=== PATIENT | female | born 1975 | race Caucasian/White ===

== ENCOUNTER 2016-06-22 00:52 | Emergency (ER) | payer MEDICAID ==
[2016-06-22] MEDS ORDERED: Ketorolac 30 MG/ML SDV IVPUSH ONE (01:07)
[2016-06-22] MEDS ORDERED: Ondansetron 4 MG/2 ML SDV IV ONE (01:08)
[2016-06-22] MEDS ORDERED: Sodium Chloride 0.9% 1,000 ML IV ONE (01:10)
--- NOTE | 2016-06-22 01:24 | EDM.PDOC ---
ED HPI RENAL/ - General Chief Complaint: Abdominal Pain Stated Complaint: ABD AND BACK PAIN, [id number] Time Seen by Provider: 06/22/16 01:21 Source of Information: Reports: Patient History Limitations: Reports: No limitations - History of Present Illness INITIAL COMMENTS - FREE TEXT/NARRATIVE: gives recurrent h/o renal stones. onset 2 hours ago. right> - Related Data Allergies/ADRs: Allergies Allergy/AdvReac Type Severity Reaction Status Date / Time Penicillins Allergy Cannot Verified 06/22/16 00:56 Remember Home Meds: Home Meds Omeprazole 20 mg PO DAILY 06/15/13 [History] PARoxetine HCl [Paroxetine HCl] 20 mg PO DAILY 06/15/13 [History] Topiramate [Topamax] 100 mg PO BID 04/19/15 [History] traMADol [Ultram] 100 mg PO DAILY 03/03/16 [History] Past Medical History - Past Health History Medical/Surgical History: Denies Medical/Surgical History HEENT History: Reports: None Cardiovascular History: Reports: None Respiratory History: Reports: None Gastrointestinal History: Reports: GERD, Irritable bowel syndrome Genitourinary History: Reports: Renal calculus Other Genitourinary History: hysterectomy, ovarian cysts, laparoscopic surgeries , breast reduction 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 Other OB/BYN History: endometriosis Musculoskeletal History: Reports: Arthritis, Fracture, Fibromyalgia, Other (see below) Other Musculoskeletal History: arthritis left foot fx., fibromyalgia Neurological History: Reports: Migraines Psychiatric History: Reports: Addiction, Anxiety Endocrine/Metabolic History: Reports: None Hematologic History: Reports: None Immunologic History: Reports: None Oncologic (Cancer) History: Reports: None Dermatologic History: Reports: None - Infectious Disease History Infectious Disease History: Reports: Chicken pox - Past Surgical History Head Surgeries/Procedures: Reports: None GI Surgical History: Reports: Cholecystectomy Female Surgical History: Reports: section, Hysterectomy Social & Family History - Family History Family Medical History: Noncontributory HEENT: Reports: None Cardiac: Reports: None Respiratory: Reports: None GI: Reports: None - Tobacco Use Smoking Status *Q: Current Every Day Smoker Years of Tobacco use: 20 Packs/Tins Daily: 0.5 Used Tobacco, but Quit: No Second Hand Smoke Exposure: Yes - Caffeine Use Caffeine Use: Reports: Coffee - Alcohol Use Days Per Week of Alcohol Use: 0 Number of Drinks Per Day: 1 Total Drinks Per Week: 0 - Recreational Drug Use Recreational Drug Use: No Drug Use in Last 12 Months: No - Living Situation & Occupation Living situation: Reports: with family Occupation: employed ED ROS GENERAL - Review of Systems Review Of Systems: ROS reveals no pertinent complaints other than HPI. ED EXAM, RENAL/ - Physical Exam Exam: See Below Exam Limited By: No limitations General Appearance: alert, WD/WN, mild distress, other (tearful) Ears: hearing grossly normal Throat/Mouth: Normal voice, No airway compromise Head: atraumatic Neck: non-tender, full range of motion Respiratory/Chest: no respiratory distress Cardiovascular: regular rate, rhythm GI/Abdominal: soft. No: guarding, rigid, rebound Back Exam: CVA tenderness (L), CVA tenderness (R) Neurological: alert, oriented, normal cognition, normal gait, no motor/sensory deficits Psychiatric: tearful Skin Exam: Warm, Dry Lymphatic: no adenopathy Course - Vital Signs Last Recorded V/S: Last Vital Signs Temp 36.0 C 06/22/16 00:57 Pulse 88 06/22/16 00:57 Resp 20 06/22/16 00:57 BP 126/81 06/22/16 00:57 Pulse Ox 98 06/22/16 00:57 - Orders/Labs/Meds Orders: Active Orders 24 hr Category Date Time Status Acetaminophen/HYDROcodone [[place] 325-10 MG] Med 06/22/16 02:30 Once 1 tab PO ONETIME ONE Labs: Laboratory Tests 06/22/16 06/22/16 06/22/16 Range/Units 01:00 01:07 01:07 WBC 12.5 H (5.0-10.0) 10^3/uL RBC 4.43 (4.2-5.4) 10^6/uL Hgb 13.5 (12.0-16.0) g/dL Hct 40.2 (37.0-47.0) % MCV 90.7 (80-100) fL MCH 30.5 (27.0-34.0) pg MCHC 33.6 (33.0-35.0) g/dL Plt Count 257 (150-450) 10^3/uL Neut % (Auto) 53.5 (42.2-75.2) % Lymph % (Auto) 39.2 (20.5-50.1) % [place] % (Auto) 5.8 (2-8) % Eos % (Auto) 0.9 L (1.0-3.0) % Baso % (Auto) 0.6 (0.0-1.0) % Sodium 134 L (135-145) mmol/L Potassium 3.6 (3.6-5.0) mmol/L Chloride 104 (101-111) mmol/L Carbon Dioxide 18.0 L (21.0-31.0) mmol/L Anion Gap 15.6 BUN 11 (7-18) mg/dL Creatinine 0.9 (0.6-1.3) mg/dL Est Cr Clr Drug Dosing TNP Estimated GFR (MDRD) > 60 BUN/Creatinine Ratio 12.22 Glucose 104 (74-105) mg/dL Calcium 9.1 (8.4-10.2) mg/dl Total Bilirubin 0.4 (0.2-1.0) mg/dL AST 22 (10-42) IU/L ALT 11 (10-60) IU/L Alkaline Phosphatase 89 (42-121) IU/L Total Protein 7.7 (6.7-8.2) g/dl Albumin 4.4 (3.2-5.5) g/dl Globulin 3.3 Albumin/Globulin Ratio 1.33 Urine Color Yellow (YELLOW) Urine Appearance Slightly cloudy (CLEAR) Urine pH 7.0 (5.0-9.0) Ur Specific [place] 1.020 (1.005-1.030) Urine Protein Negative (NEGATIVE) Urine Glucose (UA) Negative (NEGATIVE) Urine Ketones Negative (NEGATIVE) Urine Occult Blood Trace-intact H (NEGATIVE) Urine Nitrite Negative (NEGATIVE) Urine Bilirubin Negative (NEGATIVE) Urine Urobilinogen 0.2 (0.2-1.0) mg/dL Ur Leukocyte Esterase Negative (NEGATIVE) Urine RBC 0-5 /HPF Urine WBC 0-5 (0-5/HPF) /HPF Ur Epithelial Cells Rare /HPF Amorphous Sediment Moderate H (0/HPF) /HPF Urine Bacteria Rare (0-FEW/HPF) /HPF Meds: Medications Discontinued Medications Generic Name Dose Route Start Last Admin Trade Name Freq PRN Reason Stop Dose Admin Butorphanol Tartrate 1 mg 06/22/16 01:42 06/22/16 01:50 Stadol IVPUSH 06/22/16 01:43 1 mg ONETIME ONE Administration Sodium Chloride 1,000 mls @ 999 mls/hr 06/22/16 01:10 06/22/16 01:14 Normal Saline IV 06/22/16 02:10 999 mls/hr .BOLUS ONE Administration Ketorolac Tromethamine 15 mg 06/22/16 01:07 06/22/16 01:14 Toradol IVPUSH 06/22/16 01:08 15 mg ONETIME ONE Administration Ondansetron HCl 4 mg 06/22/16 01:08 06/22/16 01:15 Zofran IV 06/22/16 01:09 4 mg ONETIME ONE Administration - Re-Assessments/Exams Free Text/Narrative Re-Assessment/Exam: 06/22/16 02:30 results discussed with Pt who is feeling better but not 100%. Departure - Departure Time of Disposition: 02:31 Disposition: Home, Self-Care 01 Condition: good Clinical Impression: Flank pain, Renal cyst Instructions: Abdominal Pain, Adult, [id number] Forms: ED Department Discharge Additional Instructions: 1) rest as much as possible 2) follow up at clinic or recheck as needed - My Orders Last 24 Hours: My Active Orders 06/22/16 02:30 Acetaminophen/HYDROcodone [[place] 325-10 MG] 1 tab PO ONETIME ONE - Assessment/Plan Last 24 Hours: My Active Orders 06/22/16 02:30 Acetaminophen/HYDROcodone [[place] 325-10 MG] 1 tab PO ONETIME ONE
[2016-06-22] MEDS ORDERED: Butorphanol 2 MG/ML SDV IVPUSH ONE (01:42)
[2016-06-22 02:01] LABS: CHLORIDE,CL 104 mmol/L (101-111); SODIUM,NA 134 mmol/L (135-145)
[2016-06-22] MEDS ORDERED: Acetaminophen/HYDROcodone 325-10 MG Tab PO ONE (02:30)
[2016-06-22 02:49] VITALS: BP 123/78
== END 2016-06-22 02:38 | disposition home or self-care (01) ==
LOC: DL.ED 00:52
DX: N28.1 Cyst of kidney, acquired (principal); K21.9 Gastro-esophageal reflux disease without esophagitis; M19.90 Unspecified osteoarthritis, unspecified site; F41.9 Anxiety disorder, unspecified; F17.210 Nicotine dependence, cigarettes, uncomplicated; Z90.710 Acquired absence of both cervix and uterus; Z90.49 Acquired absence of other specified parts of digestive tract; Z79.899 Other long term (current) drug therapy; Z88.0 Allergy status to penicillin
CPT/HCPCS: 36415; 80053; 81001; 85025; 96365; 96375; 99284; A9270; J0595; J1885; J2405; J7030

== ENCOUNTER 2016-07-03 01:46 | Emergency (ER) | payer MEDICAID ==
[2016-07-03] MEDS ORDERED: Ketorolac 30 MG/ML SDV IM ONE (02:02)
[2016-07-03] MEDS ORDERED: Gabapentin 300 MG Cap PO ONE (02:02)
[2016-07-03 02:06] VITALS: BP 105/76
--- NOTE | 2016-07-03 02:06 | EDM.PDOC ---
ED HPI Trauma - General Chief Complaint: Upper Extremity Injury/Pain Stated Complaint: PAIN Time Seen by Provider: 07/03/16 02:06 Source: Reports: Patient History Limitations: Reports: No limitations - History of Present Illness INITIAL COMMENTS - FREE TEXT/NARRATIVE: 40 yo white female c/o one day of neck pain and two days of left shoulder/arm pain w/ limited ROM. Pt. denies any trauma and no incident to cause such left upper extremity discomfort Symptom Onset Date: 06/30/16 Symptom Onset Time: 12:00 Occurred When: yesterday Occurred Where: home Method of Injury: unknown Severity: moderate Pain/Injury Location: Reports: neck, upper extremity, left Consciousness: Reports: no loss of consciousness Associated Symptoms: Reports: neck pain Allergies/ADRs: Allergies Penicillins Allergy (Verified 07/03/16 01:57) Cannot Remember Home Medications: Ambulatory Orders Omeprazole 20 mg PO DAILY 06/15/13 [Confirmed 07/03/16] PARoxetine HCl [Paroxetine HCl] 20 mg PO DAILY 06/15/13 [Confirmed 07/03/16] Topiramate [Topamax] 100 mg PO BID 04/19/15 [Confirmed 07/03/16] traMADol [Ultram] 100 mg PO DAILY 03/03/16 [Confirmed 07/03/16] Methocarbamol [Methocarbamol] 1 tab PO ASDIRECTED PRN 07/03/16 [Confirmed ] Past Medical History - Past Health History Medical/Surgical History: Denies Medical/Surgical History HEENT History: Reports: None Cardiovascular History: Reports: None Respiratory History: Reports: None Gastrointestinal History: Reports: GERD, Irritable bowel syndrome Genitourinary History: Reports: Renal calculus Other Genitourinary History: hysterectomy, ovarian cysts, laparoscopic surgeries , breast reduction 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: 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 Other OB/BYN History: endometriosis Musculoskeletal History: Reports: Arthritis, Fracture, Fibromyalgia, Other (see below) Other Musculoskeletal History: arthritis left foot fx., fibromyalgia Neurological History: Reports: Migraines Psychiatric History: Reports: Addiction, Anxiety Endocrine/Metabolic History: Reports: None Hematologic History: Reports: None Immunologic History: Reports: None Oncologic (Cancer) History: Reports: None Dermatologic History: Reports: None - Infectious Disease History Infectious Disease History: Reports: Chicken pox - Past Surgical History Head Surgeries/Procedures: Reports: None GI Surgical History: Reports: Cholecystectomy Female Surgical History: Reports: section, Hysterectomy Social & Family History - Family History Family Medical History: Noncontributory HEENT: Reports: None Cardiac: Reports: None Respiratory: Reports: None GI: Reports: None - Tobacco Use Smoking Status *Q: Current Every Day Smoker Years of Tobacco use: 20 Packs/Tins Daily: 0.5 Used Tobacco, but Quit: No Second Hand Smoke Exposure: Yes - Caffeine Use Caffeine Use: Reports: Coffee - Alcohol Use Days Per Week of Alcohol Use: 0 Number of Drinks Per Day: 1 Total Drinks Per Week: 0 - Recreational Drug Use Recreational Drug Use: No Drug Use in Last 12 Months: No - Living Situation & Occupation Living situation: Reports: with family Occupation: employed Review of Systems - Review of Systems Review Of Systems: See Below Constitutional: Reports: no symptoms Eyes: Reports: no symptoms Ears: Reports: no symptoms Nose: Reports: no symptoms Mouth/Throat: Reports: no symptoms Respiratory: Reports: No Symptoms Cardiovascular: Reports: no symptoms GI/Abdominal: Reports: No symptoms Genitourinary: Reports: no symptoms Musculoskeletal: Reports: neck pain, shoulder pain (left), arm pain (left) Skin: Reports: no symptoms Neurological: Reports: Paresthesia (left upper extremity) Psychiatric: Reports: no symptoms Trauma Exam - Physical Exam Exam: See Below Exam Limited By: No limitations General Appearance: Reports: alert, WD/WN, no apparent distress Head: Reports: atraumatic, normocephalic Eyes: bilateral eye: PERRL Ears: Reports: normal external exam Nose: Reports: normal inspection Throat/Mouth: Reports: Normal inspection Neck: Reports: full range of motion, tenderness Respiratory Exam: Reports: no respiratory distress, lungs clear, normal breath sounds Cardiovascular: Reports: normal peripheral pulses GI/Abdominal: Reports: normal bowel sounds Back: Reports: full range of motion Extremities: Reports: no evidence of injury, pain with movement (left shoulder/ arm) Neurologic: Reports: alert, oriented x 3 Skin: Reports: Normal color Course - Vital Signs Last Recorded V/S: Last Vital Signs Temp 36.9 C 07/03/16 02:01 Pulse 94 07/03/16 02:01 Resp 18 07/03/16 02:01 BP 105/76 07/03/16 02:01 Pulse Ox 99 07/03/16 02:01 - Orders/Labs/Meds Orders: Active Orders 24 hr Category Date Time Status Cervical Spine 2V or 3V [CR] Urgent Exams 07/03/16 02:01 Taken Meds: Medications Discontinued Medications Generic Name Dose Route Start Last Admin Trade Name Igor PRN Reason Stop Dose Admin Gabapentin 300 mg 07/03/16 02:02 07/03/16 02:16 Neurontin PO 07/03/16 02:03 300 mg ONETIME ONE Administration Ketorolac Tromethamine 60 mg 07/03/16 02:02 07/03/16 02:16 Toradol IM 07/03/16 02:03 60 mg ONETIME ONE Administration Departure - Departure Time of Disposition: 02:45 Disposition: Home, Self-Care 01 Condition: good Clinical Impression: Arthritis Musculoskeletal arm pain Qualifiers: Laterality: left Qualified Code(s): M79.602 - Pain in left arm Forms: ED Department Discharge Additional Instructions: Rest No Lifting, No Pulling and No Pushing Take Meds as Prescribed: Ibuprofen 600mg TID # 30 W/ food Neurontin 300mg TID # 15 F/U w/ PCP for further evaluation and treatment - My Orders Last 24 Hours: My Active Orders 07/03/16 02:01 Cervical Spine 2V or 3V [CR] Urgent - Assessment/Plan Last 24 Hours: My Active Orders 07/03/16 02:01 Cervical Spine 2V or 3V [CR] Urgent
== END 2016-07-03 02:56 | disposition home or self-care (01) ==
LOC: DL.ED 01:46
DX: M79.602 Pain in left arm (principal); M19.90 Unspecified osteoarthritis, unspecified site; K21.9 Gastro-esophageal reflux disease without esophagitis; F17.210 Nicotine dependence, cigarettes, uncomplicated; G43.909 Migraine, unspecified, not intractable, without status migrainosus; F41.9 Anxiety disorder, unspecified; Z90.710 Acquired absence of both cervix and uterus; Z90.49 Acquired absence of other specified parts of digestive tract; Z88.0 Allergy status to penicillin; Z79.899 Other long term (current) drug therapy
CPT/HCPCS: 72040; 96372; 99283; A9270; J1885

== ENCOUNTER 2016-07-14 10:09 | Emergency (ER) | payer MEDICAID ==
[2016-07-14 10:22] VITALS: BP 114/86
--- NOTE | 2016-07-14 11:10 | EDM.PDOC ---
ED HPI Trauma - General Chief Complaint: Upper Extremity Injury/Pain Stated Complaint: FELL ON OUTSIDE STEPS. HURT BACK AND LT SHOULDER Time Seen by Provider: 07/14/16 10:30 Source: Reports: Patient History Limitations: Reports: No limitations - History of Present Illness INITIAL COMMENTS - FREE TEXT/NARRATIVE: This 41 yo female patient reports to the ED with pain from the left shoulder to the left pelvis. The patient reports she has been having pain for the past week , has been seen in the ED, and by her primary care facility. The patient reports she did have a MRI, but has not gotten the results from that study yet. This morning, the patient was going outside to smoke and slipped on the steps. The patient fell on her left hip, cocyx, left lower back and left posterior shoulder. Symptom Onset Date: 07/14/16 Occurred When: just prior to arrival Occurred Where: home Method of Injury: fall Severity: moderate Pain/Injury Location: Reports: neck, pelvis, back Consciousness: Reports: no loss of consciousness Associated Symptoms: Reports: no other symptoms Allergies/ADRs: Allergies Penicillins Allergy (Verified 07/14/16 10:17) Cannot Remember Home Medications: Ambulatory Orders Omeprazole 20 mg PO DAILY 06/15/13 [Confirmed 07/03/16] PARoxetine HCl [Paroxetine HCl] 20 mg PO DAILY 06/15/13 [Confirmed 07/03/16] Topiramate [Topamax] 100 mg PO BID 04/19/15 [Confirmed 07/03/16] traMADol [Ultram] 100 mg PO DAILY 03/03/16 [Confirmed 07/03/16] Methocarbamol [Methocarbamol] 1 tab PO ASDIRECTED PRN 07/03/16 [Confirmed ] Past Medical History - Past Health History Medical/Surgical History: Denies Medical/Surgical History HEENT History: Reports: None Cardiovascular History: Reports: None Respiratory History: Reports: None Gastrointestinal History: Reports: GERD, Irritable bowel syndrome Genitourinary History: Reports: Renal calculus Other Genitourinary History: hysterectomy, ovarian cysts, laparoscopic surgeries , breast reduction 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 Other OB/BYN History: endometriosis Musculoskeletal History: Reports: Arthritis, Fracture, Fibromyalgia, Other (see below) Other Musculoskeletal History: arthritis left foot fx., fibromyalgia Neurological History: Reports: Migraines Psychiatric History: Reports: Addiction, Anxiety Endocrine/Metabolic History: Reports: None Hematologic History: Reports: None Immunologic History: Reports: None Oncologic (Cancer) History: Reports: None Dermatologic History: Reports: None - Infectious Disease History Infectious Disease History: Reports: Chicken pox - Past Surgical History Head Surgeries/Procedures: Reports: None GI Surgical History: Reports: Cholecystectomy Female Surgical History: Reports: section, Hysterectomy Social & Family History - Family History Family Medical History: Noncontributory HEENT: Reports: None Cardiac: Reports: None Respiratory: Reports: None GI: Reports: None - Tobacco Use Smoking Status *Q: Current Every Day Smoker Years of Tobacco use: 25 Packs/Tins Daily: 0.5 Used Tobacco, but Quit: No Second Hand Smoke Exposure: Yes - Caffeine Use Caffeine Use: Reports: Coffee - Alcohol Use Days Per Week of Alcohol Use: 0 Number of Drinks Per Day: 1 Total Drinks Per Week: 0 - Recreational Drug Use Recreational Drug Use: No Drug Use in Last 12 Months: No - Living Situation & Occupation Living situation: Reports: with family Occupation: employed Review of Systems - Review of Systems Review Of Systems: ROS reveals no pertinent complaints other than HPI. Trauma Exam - Physical Exam Exam: See Below Exam Limited By: No limitations General Appearance: Reports: alert, WD/WN, moderate distress Head: Reports: atraumatic, normocephalic Eyes: bilateral eye: EOMI, normal inspection, PERRL Ears: Reports: normal external exam, normal canal, hearing grossly normal, normal TMs Nose: Reports: normal inspection, normal mucousa, no blood Throat/Mouth: Reports: Normal inspection, Normal lips, Normal teeth, Normal gums , Normal oropharynx, Normal voice, No airway compromise Neck: Reports: limited range of motion, painful range of motion, tenderness, tender lateral Respiratory Exam: Reports: no respiratory distress, lungs clear, normal breath sounds Cardiovascular: Reports: normal peripheral pulses, regular rate, rhythm, no edema, no gallop, no JVD, no murmur, no rub GI/Abdominal: Reports: normal bowel sounds, soft, non tender, no organomegaly, no distention, no abnormal bruit, no mass (Female) Exam: Deferred Rectal (Female) Exam: Deferred Back: Reports: decreased range of motion, paraspinal tenderness (left lower back ) Extremities: Reports: tenderness (left lower back and pelvis) 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, no motor/sensory deficits, alert , normal mood/affect, oriented x 3 Skin: Reports: Normal color, Warm/dry - Adiel Coma Score Best Eye Response ([place]): (4) open spontaneously Best Verbal Response ([place]): (5) oriented Best Motor Response ([place]): (6) obeys commands [place] Total: 15 Course - Vital Signs Last Recorded V/S: Last Vital Signs Temp 36.8 C 07/14/16 10:19 Pulse 86 07/14/16 10:19 Resp 16 07/14/16 10:19 BP 114/86 07/14/16 10:19 Pulse Ox 99 07/14/16 10:19 - Orders/Labs/Meds Meds: Medications Discontinued Medications Generic Name Dose Route Start Last Admin Trade Name Igor PRN Reason Stop Dose Admin Ketorolac Tromethamine 60 mg 07/14/16 11:45 Toradol IM 07/14/16 11:46 ONETIME ONE Departure - Departure Time of Disposition: 11:47 Disposition: Home, Self-Care 01 Condition: fair Clinical Impression: Fall from ground level Low back pain Qualifiers: Chronicity: acute Back pain laterality: left Sciatica presence: with sciatica Sciatica laterality: sciatica of left side Qualified Code(s): M54.42 - Lumbago with sciatica, left side Instructions: Back Pain, Adult, [id number] Forms: ED Department Discharge Care Plan Goals: The patient was advised of the examination and x-ray results during the visit. The patient was given an injection of Toradol (60 mg) while in the ED. The patient was discharged with a script for Toradol (10 mg) #20 to take 1 by mouth every 6 hours and Flexeril (10 mg) #16 to take 1 by mouth every 6 hours as needed. If the patient has any additional symptoms or concerns, the patient should follow-up with her primary care facility or return to the emergency department.
--- NOTE | 2016-07-14 11:29 | CR ---
CLINICAL HISTORY: 41-year-old female injured in a fall (pain low back and hips). INTERPRETATION: AP pelvis reveals solitary surgical clip right of midline and osteitis pubic symphys is. Symmetric spacing normal-appearing SI and hip joints. No sign of pathologic skeletal lesion, pelvic or either hip fracture/dislocation.
--- NOTE | 2016-07-14 11:29 | CR ---
CLINICAL HISTORY: 41-year-old female with low back pain associated with fall. INTERPRETATION: Subtle marginal arthritic spur formation mid and upper lumbar spine. Homogeneous normal bone density and no sign of pathologic skeletal lesion, lumbar fracture, spondylo listhesis or abnormal intervertebral space narrowing. (Surgical clips gallbladder fossa right upper quadrant). Symmetric spacing normal-appearing SI joints. CONCLUSION: Early arthritis. Otherwise negative plain film exam lumbar spine (no fracture or disloca tion).
[2016-07-14] MEDS ORDERED: Ketorolac 30 MG/ML SDV IM ONE (11:45)
== END 2016-07-14 12:09 | disposition home or self-care (01) ==
LOC: DL.ED 10:09
DX: M54.42 Lumbago with sciatica, left side (principal); W19.XXXA Unspecified fall, initial encounter; Z88.0 Allergy status to penicillin; Z79.899 Other long term (current) drug therapy; K21.9 Gastro-esophageal reflux disease without esophagitis; M79.7 Fibromyalgia; M19.90 Unspecified osteoarthritis, unspecified site; F41.9 Anxiety disorder, unspecified; F17.200 Nicotine dependence, unspecified, uncomplicated
CPT/HCPCS: 72100; 72170; 96372; 99284; J1885

== ENCOUNTER 2016-08-01 03:51 | Emergency (ER) | payer MEDICAID ==
[2016-08-01] MEDS ORDERED: Promethazine 25 MG/ML SDV IM ONE (04:02)
[2016-08-01] MEDS ORDERED: Butorphanol 2 MG/ML SDV IM ONE (04:02)
--- NOTE | 2016-08-01 04:06 | EDM.PDOC ---
ED HPI Trauma - General Chief Complaint: Lower Extremity Injury/Pain Stated Complaint: FELL IN SHOWER Time Seen by Provider: 08/01/16 04:03 Source: Reports: Patient History Limitations: Reports: No limitations - History of Present Illness INITIAL COMMENTS - FREE TEXT/NARRATIVE: fell in shower hurt knee and back but left knee now has a lump, tried PO toradol but '0'. Allergies/ADRs: Allergies Penicillins Allergy (Verified 08/01/16 04:05) Cannot Remember Home Medications: Ambulatory Orders Omeprazole 20 mg PO DAILY 06/15/13 [Confirmed 08/01/16] PARoxetine HCl [Paroxetine HCl] 20 mg PO DAILY 06/15/13 [Confirmed 08/01/16] Topiramate [Topamax] 100 mg PO BID 04/19/15 [Confirmed 08/01/16] traMADol [Ultram] 100 mg PO DAILY 03/03/16 [Confirmed 08/01/16] Past Medical History - Past Health History Medical/Surgical History: Denies Medical/Surgical History HEENT History: Reports: None Cardiovascular History: Reports: None Respiratory History: Reports: None Gastrointestinal History: Reports: GERD, Irritable bowel syndrome Genitourinary History: Reports: Renal calculus Other Genitourinary History: hysterectomy, ovarian cysts, laparoscopic surgeries , breast reduction 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: 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 Other OB/BYN History: endometriosis Musculoskeletal History: Reports: Arthritis, Fracture, Fibromyalgia, Other (see below) Other Musculoskeletal History: arthritis left foot fx., fibromyalgia Neurological History: Reports: Migraines Psychiatric History: Reports: Addiction, Anxiety Endocrine/Metabolic History: Reports: None Hematologic History: Reports: None Immunologic History: Reports: None Oncologic (Cancer) History: Reports: None Dermatologic History: Reports: None - Infectious Disease History Infectious Disease History: Reports: Chicken pox - Past Surgical History Head Surgeries/Procedures: Reports: None GI Surgical History: Reports: Cholecystectomy Female Surgical History: Reports: section, Hysterectomy Social & Family History - Family History Family Medical History: Noncontributory HEENT: Reports: None Cardiac: Reports: None Respiratory: Reports: None GI: Reports: None - Tobacco Use Smoking Status *Q: Current Every Day Smoker Years of Tobacco use: 25 Packs/Tins Daily: 0.5 Used Tobacco, but Quit: No Second Hand Smoke Exposure: Yes - Caffeine Use Caffeine Use: Reports: Coffee - Alcohol Use Days Per Week of Alcohol Use: 0 Number of Drinks Per Day: 1 Total Drinks Per Week: 0 - Recreational Drug Use Recreational Drug Use: No Drug Use in Last 12 Months: No - Living Situation & Occupation Living situation: Reports: with family Occupation: employed Review of Systems - Review of Systems Review Of Systems: ROS reveals no pertinent complaints other than HPI. Trauma Exam - Physical Exam Exam: See Below Exam Limited By: No limitations General Appearance: Reports: alert, WD/WN, mild distress, other (pain, crying) Head: Reports: atraumatic Ears: Reports: hearing grossly normal Throat/Mouth: Reports: Normal voice, No airway compromise Neck: Reports: non-tender, full range of motion Respiratory Exam: Reports: no respiratory distress Cardiovascular: Reports: regular rate, rhythm GI/Abdominal: Reports: soft, non tender Extremities: Reports: pain with movement, tenderness, other (left knee swollen, tender R/P, NV wnl. gait limited to pain) Neurologic: Reports: no motor/sensory deficits, alert, oriented x 3 Skin: Reports: Normal color, Warm/dry Course - Vital Signs Last Recorded V/S: Last Vital Signs Temp 36.0 C 08/01/16 04:01 Pulse 93 08/01/16 04:01 Resp 16 08/01/16 04:01 BP 116/77 08/01/16 04:01 Pulse Ox 100 08/01/16 04:01 - Orders/Labs/Meds Orders: Active Orders 24 hr Category Date Time Status Knee 3V Lt [CR] Urgent Exams 08/01/16 04:01 Taken Meds: Medications Discontinued Medications Generic Name Dose Route Start Last Admin Trade Name Igor PRN Reason Stop Dose Admin Butorphanol Tartrate 2 mg 08/01/16 04:02 08/01/16 04:19 Stadol IM 08/01/16 04:03 2 mg ONETIME ONE Administration Promethazine HCl 25 mg 08/01/16 04:02 08/01/16 04:19 Phenergan IM 08/01/16 04:03 25 mg ONETIME ONE Administration - Re-Assessments/Exams Free Text/Narrative Re-Assessment/Exam: 08/01/16 04:56 x-ray results discussed with Pt Departure - Departure Time of Disposition: 04:57 Disposition: Home, Self-Care 01 Condition: good Clinical Impression: Contusion of knee, left Qualifiers: Encounter type: initial encounter Qualified Code(s): S80.02XA - Contusion of left knee, initial encounter Instructions: Contusion, [id number] Forms: ED Department Discharge Additional Instructions: 1) elevate knee as much as possible next 3 to 4 days 2) ice intermittently for swelling 3) follow up at clinic or recheck as needed - My Orders Last 24 Hours: My Active Orders 08/01/16 04:01 Knee 3V Lt [CR] Urgent - Assessment/Plan Last 24 Hours: My Active Orders 08/01/16 04:01 Knee 3V Lt [CR] Urgent
[2016-08-01 05:18] VITALS: BP 107/71
== END 2016-08-01 05:02 | disposition home or self-care (01) ==
LOC: DL.ED 03:51
DX: S80.02XA Contusion of left knee, initial encounter (principal); K21.9 Gastro-esophageal reflux disease without esophagitis; M19.90 Unspecified osteoarthritis, unspecified site; F41.9 Anxiety disorder, unspecified; F17.210 Nicotine dependence, cigarettes, uncomplicated; Z90.710 Acquired absence of both cervix and uterus; Z90.49 Acquired absence of other specified parts of digestive tract; Z88.0 Allergy status to penicillin; W18.2XXA Fall in (into) shower or empty bathtub, initial encounter
CPT/HCPCS: 73562; 96372; 99283; J0595; J2550

== ENCOUNTER 2016-11-10 06:27 | Day surgery (SDC) | payer MEDICAID ==
[~2016-11-10 06:27] MED LIST: Dextrose 5%-0.45% NaCl 1,000 ML IV SCH; Midazolam 1 MG/ML 2 ML SDV ONE; Sodium Chloride 0.9% 10 ML Syringe FLUSH PRN; fentaNYL 100 MCG/2 ML SDV ONE
[2016-11-10] MEDS ORDERED: Midazolam 1 MG/ML 2 ML SDV IV ONE ×7 (07:23→14:29)
[2016-11-10] MEDS ORDERED: fentaNYL 100 MCG/2 ML SDV IV ONE ×5 (07:23→14:29)
[2016-11-10 09:54] VITALS: BP 106/79
--- NOTE | 2016-11-10 12:28 | OR ---
DATE: 11/10/2016 PROCEDURE: Total colonoscopy. INSTRUMENT USED: PCF-H180 AL Olympus video colonoscope. PREMEDICATIONS: Fentanyl 150 mcg intravenous, Versed 4 mg intravenous, nasal O2 cannula. The procedure was done under pulse oximetry, BP recording, and nurse chemical dependency. INDICATION: The patient with persistent right-sided lower abdominal pain unexplained and not responsive to medical measures. Colonoscopic examination is done for detection of any polypoid lesions and removal, endoscopic hemostasis therapy if needed. DESCRIPTION OF PROCEDURE: Initial rectal exam was unremarkable. Rigid anoscopy was normal. The colonoscope was passed with ease up to the ileocecal area. Photographs were taken of the normal-appearing cecum identified by landmarks of appendiceal orifice and double-bulged ileocecal folds. No bleeding was noted from any of the visualized areas at the commencement of the examination. No stricture. No vascular ectasia. No large isolated ulcerations seen. No evidence of diffuse inflammatory bowel disease in the form of friability, contact bleeding, or ulcerations. No polyp or tumor mass identified. Probing the proximal sides of folds and flexures, using adequate distention and clearing of the stool material, withdrawal of the scope was made. Cecum to rectum time was over 6 minutes. No bleeding was noted from any of the visualized areas at the completion of examination. IMPRESSION: Normal study. The patient tolerated the procedure well. [facility] /[id number]
== END 2016-11-10 09:45 | disposition home or self-care (01) ==
LOC: DL.ENDO 06:27
PROVIDERS: ATTEND Internal Medicine Gastroenterology
DX: R10.31 Right lower quadrant pain (principal); E66.9 Obesity, unspecified; K21.9 Gastro-esophageal reflux disease without esophagitis; F32.9 Major depressive disorder, single episode, unspecified; Z72.0 Tobacco use; Z88.0 Allergy status to penicillin; Z98.890 Other specified postprocedural states
CPT/HCPCS: 45378; J2250; J3010; J7042

== ENCOUNTER 2017-04-01 21:42 | Emergency (ER) | payer MEDICAID ==
[2017-04-01 23:11] VITALS: BP 112/81
[2017-04-01] MEDS ORDERED: Ondansetron 4 MG Tab.DIS PO ONE (23:25)
[2017-04-01] MEDS ORDERED: Acetaminophen/HYDROcodone 325-10 MG Tab PO ONE (23:25)
--- NOTE | 2017-04-01 23:26 | EDM.PDOC ---
ED HPI GENERAL MEDICAL PROBLEM - General Chief Complaint: Headache Stated Complaint: HEADACHE, [id number] Time Seen by Provider: 04/01/17 22:05 Source of Information: Reports: Patient History Limitations: Reports: No Limitations - History of Present Illness INITIAL COMMENTS - FREE TEXT/NARRATIVE: C/O usual migraine headache not relieved with excedrin and imitrex. 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 Headache Pain Score (Numeric/FACES): 8 - Related Data Allergies Allergy/AdvReac Type Severity Reaction Status Date / Time Penicillins Allergy Rash Verified 04/01/17 21:54 Home Meds: Home Meds Omeprazole 20 mg PO DAILY 06/15/13 [History] PARoxetine HCl [Paroxetine HCl] 30 mg PO DAILY 06/15/13 [History] Topiramate [Topamax] 100 mg PO BID 04/19/15 [History] traMADol [Ultram] 100 mg PO DAILY 03/03/16 [History] Cyclobenzaprine [Flexeril] 1 tab PO BEDTIME 11/06/16 [History] Orphenadrine [Norflex] 1 tab PO ASDIRECTED 11/06/16 [History] SUMAtriptan [Imitrex] 1 tab PO ONETIME PRN 11/06/16 [History] Past Medical History - Past Health History Medical/Surgical History: Denies Medical/Surgical History HEENT History: Reports: None Cardiovascular History: Reports: None Respiratory History: Reports: None Gastrointestinal History: Reports: GERD, Irritable Bowel Syndrome Genitourinary History: Reports: Renal Calculus Other Genitourinary History: hysterectomy, ovarian cysts, laparoscopic surgeries , breast reduction 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: 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 Other OB/BYN History: endometriosis Musculoskeletal History: Reports: Arthritis, Fracture, Fibromyalgia, Other (See Below) Other Musculoskeletal History: arthritis left foot fx., fibromyalgia Neurological History: Reports: Migraines Psychiatric History: Reports: Addiction, Anxiety, Depression Endocrine/Metabolic History: Reports: None, Obesity/BMI 30+ Hematologic History: Reports: None Immunologic History: Reports: None Oncologic (Cancer) History: Reports: None Dermatologic History: Reports: None - Infectious Disease History Infectious Disease History: Reports: Chicken Pox - Past Surgical History Head Surgeries/Procedures: Reports: None GI Surgical History: Reports: Cholecystectomy Female Surgical History: Reports: Section, Hysterectomy Social & Family History - Family History Family Medical History: Noncontributory HEENT: Reports: None Cardiac: Reports: None Respiratory: Reports: None GI: Reports: None - Tobacco Use Smoking Status *Q: Current Every Day Smoker Years of Tobacco use: 25 Packs/Tins Daily: 0.5 Used Tobacco, but Quit: No Second Hand Smoke Exposure: Yes - Caffeine Use Caffeine Use: Reports: Coffee Other Caffeine Use: AVERAGE OF 2 8 OZ CUPS DAILY - Alcohol Use Days Per Week of Alcohol Use: 0 Number of Drinks Per Day: 1 Total Drinks Per Week: 0 - Recreational Drug Use Recreational Drug Use: No Drug Use in Last 12 Months: No - Living Situation & Occupation Living situation: Reports: with Family Occupation: Employed ED ROS GENERAL - Review of Systems Review Of Systems: See Below Constitutional: Reports: No Symptoms HEENT: Reports: No Symptoms Respiratory: Reports: No Symptoms Cardiovascular: Reports: No Symptoms GI/Abdominal: Reports: Nausea Musculoskeletal: Reports: No Symptoms Skin: Reports: No Symptoms Neurological: Reports: Headache (generalized) - Physical Exam Exam: See Below Exam Limited By: No Limitations General Appearance: Mild Distress (sitting talking with family and playing on cellphone) Eye Exam: Bilateral Eye: EOMI Ears: Normal External Exam Nose: Normal Inspection Throat/Mouth: Normal Inspection Head Exam: Atraumatic, Normocephalic Neck: Normal Inspection Respiratory/Chest: No Respiratory Distress, Lungs Clear Cardiovascular: Regular Rate, Rhythm GI/Abdominal: Normal Bowel Sounds, Soft Neuro Exam (Abbreviated): Alert, Oriented, Normal Cognition, Normal Gait, Normal Reflexes Extremities: Normal Inspection Psychiatric: Normal Affect, Normal Mood Skin Exam: Warm, Dry, Intact, Normal Color, No Rash Course - Vital Signs Last Recorded V/S: Last Vital Signs Temp 98.8 F 04/01/17 23:10 Pulse 100 04/01/17 23:10 Resp 16 04/01/17 23:10 BP 112/81 04/01/17 23:10 Pulse Ox 99 04/01/17 23:10 - Orders/Labs/Meds Meds: Medications Discontinued Medications Generic Name Dose Route Start Last Admin Trade Name Freq PRN Reason Stop Dose Admin Hydrocodone Bitart/Acetaminophen 1 tab 04/01/17 23:25 04/01/17 23:31 [place] 325-10 Mg PO 04/01/17 23:26 1 tab ONETIME ONE Administration Ondansetron HCl 4 mg 04/01/17 23:25 04/01/17 23:31 Zofran Odt PO 04/01/17 23:26 4 mg ONETIME ONE Administration Departure - Departure Time of Disposition: 23:26 Disposition: Home, Self-Care 01 Condition: Good Clinical Impression: Headache Qualifiers: Headache type: unspecified Headache chronicity pattern: acute headache Intractability: not intractable Qualified Code(s): R51 - Headache - Discharge Information Instructions: Recurrent Migraine Headache, [id number] Forms: ED Department Discharge Additional Instructions: follow up with primary care in am if continued pain home medications per primary care instructions increase fluid intake
== END 2017-04-01 23:33 | disposition home or self-care (01) ==
LOC: DL.ED 21:42
DX: R51 Headache (principal); F17.210 Nicotine dependence, cigarettes, uncomplicated; Z88.0 Allergy status to penicillin; Z79.899 Other long term (current) drug therapy
CPT/HCPCS: 99283; A9270

== ENCOUNTER 2018-08-27 13:44 | Emergency (ER) | payer BC, MEDICAID ==
[2018-08-27 13:53] VITALS: BP 120/75; PULSE 87
--- NOTE | 2018-08-27 14:25 | EDM.PDOC ---
ED HPI GENERAL MEDICAL PROBLEM - General Chief Complaint: Abdominal Pain Stated Complaint: ABDOMINAL AND BACK PAIN Time Seen by Provider: 08/27/18 14:15 Source of Information: Reports: Patient History Limitations: Reports: No Limitations - History of Present Illness INITIAL COMMENTS - FREE TEXT/NARRATIVE: This 43 yo female patient reports to the ED with right sided lower abdominal pain and right flank pain. The patient reports her symptoms started this morning at 0830 or 0900. The patient reports she has a history of kidney stones , renal cysts and ovarian cysts. The patient reports she had a migraine headache yesterday and was treated for her migraine. The patient reports no additional headaches since being treated. Onset: Today Onset Date: 08/27/18 Onset Time: 09:00 Duration: Constant Location: Reports: Abdomen (RLQ and right flank) Quality: Reports: Ache Severity: Moderate Improves with: Reports: None Worsens with: Reports: None Context: Reports: Other Associated Symptoms: Reports: No Other Symptoms Right Lower Abdomen Pain Score (Numeric/FACES): 8 - Related Data Allergies Allergy/AdvReac Type Severity Reaction Status Date / Time Penicillins Allergy Rash Verified 08/27/18 13:53 Home Meds: Home Meds traMADol [Ultram] 50 mg PO BID 03/03/16 [History] SUMAtriptan [Imitrex] 1 tab PO ONETIME PRN 11/06/16 [History] Past Medical History - Past Health History Medical/Surgical History: Denies Medical/Surgical History HEENT History: Reports: None Cardiovascular History: Reports: None Respiratory History: Reports: None Gastrointestinal History: Reports: GERD, Irritable Bowel Syndrome Genitourinary History: Reports: Renal Calculus Other Genitourinary History: hysterectomy, ovarian cysts, laparoscopic surgeries , breast reduction 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: 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 Other LABORER RAGS History: endometriosis Musculoskeletal History: Reports: Arthritis, Fracture, Fibromyalgia, Other (See Below) Other Musculoskeletal History: arthritis left foot fx., fibromyalgia Neurological History: Reports: Migraines Psychiatric History: Reports: Addiction, Anxiety, Depression Endocrine/Metabolic History: Reports: Obesity/BMI 30+ Hematologic History: Reports: None Immunologic History: Reports: None Oncologic (Cancer) History: Reports: None Dermatologic History: Reports: None - Infectious Disease History Infectious Disease History: Reports: Chicken Pox - Past Surgical History Head Surgeries/Procedures: Reports: None GI Surgical History: Reports: Cholecystectomy Female Surgical History: Reports: Section, Hysterectomy Social & Family History - Family History Family Medical History: Noncontributory HEENT: Reports: None Cardiac: Reports: None Respiratory: Reports: None GI: Reports: None - Tobacco Use Smoking Status *Q: Current Every Day Smoker Years of Tobacco use: 20 Packs/Tins Daily: 0.5 Second Hand Smoke Exposure: Yes - Caffeine Use Caffeine Use: Reports: Coffee Other Caffeine Use: AVERAGE OF 2 8 OZ CUPS DAILY - Recreational Drug Use Recreational Drug Use: No - Living Situation & Occupation Living situation: Reports: with Family Occupation: Employed ED ROS GENERAL - Review of Systems Review Of Systems: ROS reveals no pertinent complaints other than HPI. ED EXAM, GI/ABD - Physical Exam Exam: See Below Exam Limited By: No Limitations General Appearance: Alert, WD/WN, Moderate Distress Eyes: Bilateral: Normal Appearance, EOMI Ears: Normal External Exam, Normal Canal, Hearing Grossly Normal, Normal TMs Nose: Normal Inspection, Normal Mucosa, No Blood Throat/Mouth: Normal Inspection, Normal Lips, Normal Teeth, Normal Gums, Normal Oropharynx, Normal Voice, No Airway Compromise Head: Atraumatic, Normocephalic Neck: Normal Inspection, Supple, Non-Tender, Full Range of Motion Respiratory/Chest: No Respiratory Distress, Lungs Clear, Normal Breath Sounds, No Accessory Muscle Use, Chest Non-Tender Cardiovascular: Normal Peripheral Pulses, Regular Rate, Rhythm, No Edema, No Gallop, No JVD, No Murmur, No Rub GI/Abdominal Exam: Guarding, Tender (RLQ) (Female) Exam: Deferred Rectal (Female) Exam: Deferred Back Exam: CVA Tenderness (R) Extremities: Normal Inspection, Normal Range of Motion, Non-Tender, Normal Capillary Refill, No Pedal Edema Neurological: Alert, Oriented, CN II-XII Intact, Normal Cognition, Normal Gait, Normal Reflexes, No Motor/Sensory Deficits Psychiatric: Normal Affect, Normal Mood Skin Exam: Warm, Dry, Intact, Normal Color, No Rash Lymphatic: No Adenopathy Course - Vital Signs Last Recorded V/S: Last Vital Signs Temp 37.1 C 08/27/18 13:47 Pulse 87 08/27/18 13:47 Resp 18 08/27/18 13:47 BP 120/75 08/27/18 13:47 Pulse Ox 99 08/27/18 13:47 - Orders/Labs/Meds Orders: Active Orders 24 hr Category Date Time Status Sodium Chloride 0.9% [Normal Saline] 1,000 ml Med 08/27/18 14:53 Ordered IV .BOLUS Medication Orders Sodium Chloride (Normal Saline) 1,000 mls @ 999 mls/hr IV .BOLUS ONE Stop: 08/27/18 15:53 Last Admin: 08/27/18 15:03 Dose: 999 mls/hr Labs: Laboratory Tests 08/27/18 08/27/18 08/27/18 Range/Units 14:14 14:14 14:20 WBC 11.5 H (5.0-10.0) 10^3/uL RBC 4.77 (4.2-5.4) 10^6/uL Hgb 14.2 (12.0-16.0) g/dL Hct 42.4 (37.0-47.0) % MCV 88.9 (80-100) fL MCH 29.8 (27.0-34.0) pg MCHC 33.5 (33.0-35.0) g/dL Plt Count 246 (150-450) 10^3/uL Neut % (Auto) 59.5 (42.2-75.2) % Lymph % (Auto) 32.6 (20.5-50.1) % Bee % (Auto) 6.6 (2-8) % Eos % (Auto) 1.0 (1.0-3.0) % Baso % (Auto) 0.3 (0.0-1.0) % Sodium (135-145) mmol/L Potassium (3.6-5.0) mmol/L Chloride (101-111) mmol/L Carbon Dioxide (21.0-31.0) mmol/L Anion Gap BUN (7-18) mg/dL Creatinine (0.6-1.3) mg/dL Est Cr Clr Drug Dosing mL/min Estimated GFR (MDRD) BUN/Creatinine Ratio Glucose (74-105) mg/dL Calcium (8.4-10.2) mg/dl Total Bilirubin (0.2-1.0) mg/dL AST (10-42) IU/L ALT (10-60) IU/L Alkaline Phosphatase (42-121) IU/L Total Protein (6.7-8.2) g/dl Albumin (3.2-5.5) g/dl Globulin Albumin/Globulin Ratio Urine Color Yellow (YELLOW) Urine Appearance Clear (CLEAR) Urine pH 7.0 (5.0-9.0) Ur Specific [place] 1.015 (1.005-1.030) Urine Protein Negative (NEGATIVE) Urine Glucose (UA) Negative (NEGATIVE) Urine Ketones Negative (NEGATIVE) Urine Occult Blood Trace-lysed H (NEGATIVE) Urine Nitrite Negative (NEGATIVE) Urine Bilirubin Negative (NEGATIVE) Urine Urobilinogen 0.2 (0.2-1.0) mg/dL Ur Leukocyte Esterase Negative (NEGATIVE) Urine RBC 5-10 H /HPF Urine WBC 0-5 (0-5/HPF) /HPF Ur Epithelial Cells Rare (NOT SEEN) /HPF Amorphous Sediment Occasional (NOT SEEN) /HPF Urine Bacteria Rare (0-FEW/HPF) /HPF Urine Mucus Rare (NOT SEEN) /LPF Urine Opiates Screen Negative (NEGATIVE) Ur Oxycodone Screen Negative (NEGATIVE) Urine Methadone Screen Negative (NEGATIVE) Ur Barbiturates Screen Negative (NEGATIVE) U Tricyclic Antidepress Negative (NEGATIVE) Ur Phencyclidine Scrn Negative (NEGATIVE) Ur Amphetamine Screen Negative (NEGATIVE) U Methamphetamines Scrn Negative (NEGATIVE) Urine MDMA Screen Negative (NEGATIVE) U Benzodiazepines Scrn Negative (NEGATIVE) Urine Cocaine Screen Negative (NEGATIVE) U Marijuana (THC) Screen Negative (NEGATIVE) 08/27/18 Range/Units 14:20 WBC (5.0-10.0) 10^3/uL RBC (4.2-5.4) 10^6/uL Hgb (12.0-16.0) g/dL Hct (37.0-47.0) % MCV (80-100) fL MCH (27.0-34.0) pg MCHC (33.0-35.0) g/dL Plt Count (150-450) 10^3/uL Neut % (Auto) (42.2-75.2) % Lymph % (Auto) (20.5-50.1) % Bee % (Auto) (2-8) % Eos % (Auto) (1.0-3.0) % Baso % (Auto) (0.0-1.0) % Sodium 136 (135-145) mmol/L Potassium 4.0 (3.6-5.0) mmol/L Chloride 104 (101-111) mmol/L Carbon Dioxide 22.0 (21.0-31.0) mmol/L Anion Gap 14.0 BUN 17 (7-18) mg/dL Creatinine 0.9 (0.6-1.3) mg/dL Est Cr Clr Drug Dosing 77.01 mL/min Estimated GFR (MDRD) > 60 BUN/Creatinine Ratio 18.88 Glucose 96 (74-105) mg/dL Calcium 9.2 (8.4-10.2) mg/dl Total Bilirubin 0.6 (0.2-1.0) mg/dL AST 20 (10-42) IU/L ALT 12 (10-60) IU/L Alkaline Phosphatase 62 (42-121) IU/L Total Protein 8.0 (6.7-8.2) g/dl Albumin 4.5 (3.2-5.5) g/dl Globulin 3.5 Albumin/Globulin Ratio 1.29 Urine Color (YELLOW) Urine Appearance (CLEAR) Urine pH (5.0-9.0) Ur Specific [place] (1.005-1.030) Urine Protein (NEGATIVE) Urine Glucose (UA) (NEGATIVE) Urine Ketones (NEGATIVE) Urine Occult Blood (NEGATIVE) Urine Nitrite (NEGATIVE) Urine Bilirubin (NEGATIVE) Urine Urobilinogen (0.2-1.0) mg/dL Ur Leukocyte Esterase (NEGATIVE) Urine RBC /HPF Urine WBC (0-5/HPF) /HPF Ur Epithelial Cells (NOT SEEN) /HPF Amorphous Sediment (NOT SEEN) /HPF Urine Bacteria (0-FEW/HPF) /HPF Urine Mucus (NOT SEEN) /LPF Urine Opiates Screen (NEGATIVE) Ur Oxycodone Screen (NEGATIVE) Urine Methadone Screen (NEGATIVE) Ur Barbiturates Screen (NEGATIVE) U Tricyclic Antidepress (NEGATIVE) Ur Phencyclidine Scrn (NEGATIVE) Ur Amphetamine Screen (NEGATIVE) U Methamphetamines Scrn (NEGATIVE) Urine MDMA Screen (NEGATIVE) U Benzodiazepines Scrn (NEGATIVE) Urine Cocaine Screen (NEGATIVE) U Marijuana (THC) Screen (NEGATIVE) Meds: Medications Generic Name Dose Route Start Last Admin Trade Name Freq PRN Reason Stop Dose Admin Sodium Chloride 1,000 mls @ 999 mls/hr 08/27/18 14:53 08/27/18 15:03 Normal Saline IV 08/27/18 15:53 999 mls/hr .BOLUS ONE Administration Discontinued Medications Generic Name Dose Route Start Last Admin Trade Name Igor PRN Reason Stop Dose Admin Ketorolac Tromethamine 30 mg 08/27/18 14:53 08/27/18 15:03 Toradol IVPUSH 08/27/18 14:54 30 mg ONETIME ONE Administration Departure - Departure Time of Disposition: 15:43 Disposition: Home, Self-Care 01 Condition: Good Clinical Impression: Abdominal pain Qualifiers: Abdominal location: right lower quadrant Qualified Code(s): R10.31 - Right lower quadrant pain - Discharge Information *PRESCRIPTION DRUG MONITORING PROGRAM REVIEWED*: Not Applicable *COPY OF PRESCRIPTION DRUG MONITORING REPORT IN PATIENT MIKE: Not Applicable Instructions: Abdominal Pain, Adult, [id number] Forms: ED Department Discharge Care Plan Goals: The patient was advised of the examination, lab and CT results during the visit. The patient was given a liter of IV fluid and IV Toradol while in the ED. The patient was encouraged to continue to monitor her symptoms. If the patient has any additional symptoms or concerns, the patient should either return to the emergency department or visit her primary care facility. - My Orders Last 24 Hours: My Active Orders 08/27/18 14:53 Sodium Chloride 0.9% [Normal Saline] 1,000 ml IV .BOLUS - Assessment/Plan Last 24 Hours: My Active Orders 08/27/18 14:53 Sodium Chloride 0.9% [Normal Saline] 1,000 ml IV .BOLUS
[2018-08-27 14:42] LABS: CHLORIDE,CL 104 mmol/L (101-111); SODIUM,NA 136 mmol/L (135-145)
[2018-08-27] MEDS ORDERED: Sodium Chloride 0.9% 1,000 ML IV ONE (14:53)
[2018-08-27] MEDS ORDERED: Ketorolac 30 MG/ML SDV IVPUSH ONE (14:53)
--- NOTE | 2018-08-27 15:37 | CT ---
Clinical history: 43-year-old female with hematuria and WBC 11,500 (history "renal stone"). Note: This patient who has had cholecystectomy, and hysterectomy reported to have "bilateral nephrolithiasis without obstructive uropathy" on CT exam 16 October 2016. Scan technique: Volume acquisition of data emergency unenhanced CT scan of the abdomen and pelvis (kidneys/ureters/bladder) obtained while the patient was lying supine on the Siemens multi slice scanner [place], [place]. All data archived in the PACS system for storage, reformatting axial/sagittal/coronal planes and study. Interpretation: Small 12 mm diameter cystlike lesion, lower midpole cortex, right kidney. Punctate calcifications calyces lower pole right and lower midpole contralateral left kidney i.e. bilateral nephrolithiasis. (Phlebolith calcifications pelvis that were present on previous exam 16 October 2016) No ureteral calcifications or current signs of obstructive uropathy. Symmetrically distended urinary bladder without intraluminal calcifications. Surgical clips gallbladder fossa (RUQ). Unenhanced liver, stomach, spleen, pancreas and adrenal glands unremarkable. No abdominal or pelvic mass lesion, mesenteric or retroperitoneal lymphadenopathy, signs of mechanical bowel obstruction, inflammatory "dirty" peritoneal fat, mechanical bowel obstruction or ascites (surgical clip RLQ). Lung bases clear. CONCLUSION: Bilateral nephrolithiasis (no signs of obstructive uropathy or pyelonephritis). Cholecystectomy. Appendectomy. Hysterectomy. No acute intraperitoneal abnormality.
== END 2018-08-27 15:47 | disposition home or self-care (01) ==
LOC: DL.ED 13:44
DX: R10.31 Right lower quadrant pain (principal); F17.210 Nicotine dependence, cigarettes, uncomplicated; G43.909 Migraine, unspecified, not intractable, without status migrainosus; Z79.899 Other long term (current) drug therapy; Z88.0 Allergy status to penicillin
CPT/HCPCS: 36415; 74176; 80053; 80305; 81001; 85025; 96361; 96374; 99284; J1885; J7030

== ENCOUNTER 2019-04-08 13:40 | Emergency (ER) | payer BC ==
[2019-04-08 14:14] VITALS: BP 134/88; PULSE 117
[2019-04-08] MEDS ORDERED: Ketorolac 30 MG/ML SDV IVPUSH ONE (14:30)
[2019-04-08] MEDS ORDERED: Iopamidol 612 MG/ML 100 ML Bottle IVPUSH ONE (14:33)
[2019-04-08 15:05] LABS: ANION GAP 13.7; CHLORIDE,CL 101 mmol/L (101-111); SODIUM,NA 135 mmol/L (135-145)
--- NOTE | 2019-04-08 15:54 | CT ---
EXAMINATION: Abdomen Pelvis w Cont SEX: Female AGE: 43 years CLINICAL HISTORY: 43-year-old 167 pound female smoker who has had hysterectomy and partial oophorectomy (one ovary remains) and previous cholecystectomy/appendectomy and now complaining of RIGHT LOWER QUADRANT PAIN. Reported on previous CT scan 27 aug 2018 to have "bilateral nephrolithiasis". Scan technique: Volume acquisition of data emergency CT scan abdomen and pelvis obtained without oral contrast but during intravenous infusion 75 cc nonionic Isovue contrast (3 cc/s via injector) while patient was lying supine on the Siemens multi slice scanner [place], [place]. All data archived in the PACS system for storage, reformatting axial/sagittal/coronal planes and study. Note: This patient has had 19 CT scans since October 2008. Interpretation: 1. Bilateral punctate calcifications lower midpole calyces both the left and right kidneys. No pyelocaliectasis or ureterectasis. No solid renal cortical mass lesion but apparent small cysts present bilaterally lower midpole right/upper mid pole left kidney. 2. Single 2.5 cm diameter round simple cyst right adnexa presumably originating in the ipsilateral ovary. 3. Surgical clips gallbladder fossa (RUQ) and adjacent to the cecum (RLQ). 4. Numerous phlebolith-like radiopacities in the pelvis. No abdominal or pelvic mass lesion, inflammatory "dirty" peritoneal fat, signs of mechanical bowel obstruction, ascites or free intraperitoneal air. Normal caliber aortoiliac vessels. 5. Liver, stomach, spleen, pancreas unremarkable. Normal lumbar spine. 6. Normal cardiac silhouette. Lung bases clear. CONCLUSION: Evidence previous surgeries. Simple right ovarian cyst. Bilateral nephrolithiasis and renal cortical cysts.
== END 2019-04-08 15:56 | disposition home or self-care (01) ==
LOC: DL.ED 13:40
DX: N83.201 Unspecified ovarian cyst, right side (principal); E66.9 Obesity, unspecified; Z90.710 Acquired absence of both cervix and uterus; Z90.49 Acquired absence of other specified parts of digestive tract; Z88.0 Allergy status to penicillin
CPT/HCPCS: 36415; 74177; 80053; 80305; 81001; 85025; 96374; 99284; J1885; Q9967

== ENCOUNTER 2019-11-03 12:01 | Emergency (ER) | payer BC ==
[2019-11-03 12:15] VITALS: BP 110/74; PULSE 101
[2019-11-03 13:15] LABS: ANION GAP 13.2 mEq/L (7-13); CHLORIDE,CL 101 mmol/L (98-107); SODIUM,NA 138 mmol/L (136-145)
--- NOTE | 2019-11-03 14:40 | EDM.PDOC ---
ED HPI GENERAL MEDICAL PROBLEM - General Chief Complaint: Gastrointestinal Problem Stated Complaint: ABD PAIN Time Seen by Provider: 11/03/19 12:20 Source of Information: Reports: Patient History Limitations: Reports: No Limitations - History of Present Illness INITIAL COMMENTS - FREE TEXT/NARRATIVE: This 44 yo female patient reports to the ED with right lower quadrant abdominal pain for 2 days. The patient reports her pain has been intermittent over the past 2 days. The patient rates her pain at a 5-6/10 at the worst. The patient reports she did have her gallbladder removed, but still has her appendix. Onset: Gradual Duration: Day(s):, Intermittent Location: Reports: Abdomen (RLQ) Quality: Reports: Ache Severity: Moderate Improves with: Reports: None Worsens with: Reports: None Context: Reports: Other Associated Symptoms: Reports: No Other Symptoms Abdomen Pain Score (Numeric/FACES): 8 - Related Data Allergies Allergy/AdvReac Type Severity Reaction Status Date / Time Penicillins Allergy Rash Verified 04/08/19 15:17 Home Meds: Home Meds traMADol [Ultram] 50 mg PO BID 03/03/16 [History] SUMAtriptan [Imitrex] 1 tab PO ONETIME PRN 11/06/16 [History] Zolpidem [Ambien] 5 mg PO ASDIRECTED 04/08/19 [History] Past Medical History - Past Health History Medical/Surgical History: Denies Medical/Surgical History HEENT History: Reports: None Cardiovascular History: Reports: None Respiratory History: Reports: None Gastrointestinal History: Reports: GERD, Irritable Bowel Syndrome Genitourinary History: Reports: Renal Calculus Other Genitourinary History: hysterectomy, ovarian cysts, laparoscopic surgeries, breast reduction STONE DRESSER History: Reports: 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, Other (See Below) Other STONE DRESSER History: endometriosis, ovarien cyst Musculoskeletal History: Reports: Arthritis, Fracture, Fibromyalgia, Other (See Below) Other Musculoskeletal History: arthritis left foot fx., fibromyalgia Neurological History: Reports: Migraines Psychiatric History: Reports: Addiction, Anxiety, Depression Endocrine/Metabolic History: Reports: Obesity/BMI 30+ Hematologic History: Reports: None Immunologic History: Reports: None Oncologic (Cancer) History: Reports: None Dermatologic History: Reports: None - Infectious Disease History Infectious Disease History: Reports: Chicken Pox - Past Surgical History Head Surgeries/Procedures: Reports: None GI Surgical History: Reports: Cholecystectomy Female Surgical History: Reports: Section, Hysterectomy Social & Family History - Family History Family Medical History: Noncontributory HEENT: Reports: None Cardiac: Reports: None Respiratory: Reports: None GI: Reports: None - Tobacco Use Smoking Status *Q: Current Every Day Smoker Years of Tobacco use: 20 Packs/Tins Daily: 0.5 - Caffeine Use Caffeine Use: Reports: Coffee Other Caffeine Use: AVERAGE OF 2 8 OZ CUPS DAILY - Recreational Drug Use Recreational Drug Use: No - Living Situation & Occupation Living situation: Reports: with Family Occupation: Employed ED ROS GENERAL - Review of Systems Review Of Systems: Comprehensive ROS is negative, except as noted in HPI. ED EXAM, GI/ABD - Physical Exam Exam: See Below Exam Limited By: No Limitations General Appearance: Alert, WD/WN, Mild Distress Eyes: Bilateral: Normal Appearance, EOMI Ears: Normal External Exam, Normal Canal, Hearing Grossly Normal, Normal TMs Nose: Normal Inspection, Normal Mucosa, No Blood Throat/Mouth: Normal Inspection, Normal Lips, Normal Teeth, Normal Gums, Normal Oropharynx, Normal Voice, No Airway Compromise Head: Atraumatic, Normocephalic Neck: Normal Inspection, Supple, Non-Tender, Full Range of Motion Respiratory/Chest: No Respiratory Distress, Lungs Clear, Normal Breath Sounds, No Accessory Muscle Use, Chest Non-Tender Cardiovascular: Normal Peripheral Pulses, Regular Rate, Rhythm, No Edema, No Gallop, No JVD, No Murmur, No Rub GI/Abdominal Exam: Normal Bowel Sounds, Soft, No Organomegaly, No Distention, No Abnormal Bruit, No Mass, Pelvis Stable, Tender (RLQ) (Female) Exam: Deferred Rectal (Female) Exam: Deferred Back Exam: Normal Inspection, Full Range of Motion, NT Extremities: Normal Inspection, Normal Range of Motion, Non-Tender, Normal Capillary Refill, No Pedal Edema Neurological: Alert, Oriented, CN II-XII Intact, Normal Cognition, Normal Gait, Normal Reflexes, No Motor/Sensory Deficits Psychiatric: Normal Affect, Normal Mood Skin Exam: Warm, Dry, Intact, Normal Color, No Rash Lymphatic: No Adenopathy Course - Vital Signs Last Recorded V/S: Last Vital Signs Temp 36.7 C 11/03/19 12:14 Pulse 101 H 11/03/19 12:14 Resp 16 11/03/19 12:14 BP 110/74 07/30/20 12:14 Pulse Ox 98 11/03/19 12:14 - Orders/Labs/Meds Orders: Active Orders 24 hr Category Date Time Status CULTURE BLOOD [BC] Stat Lab 11/03/19 12:50 Received Labs: Laboratory Tests 11/03/19 11/03/19 11/03/19 Range/Units 12:16 12:16 12:50 WBC 10.0 (5.0-10.0) 10^3/uL RBC 4.92 (4.2-5.4) 10^6/uL Hgb 14.6 (12.0-16.0) g/dL Hct 43.9 (37.0-47.0) % MCV 89.2 (80-100) fL MCH 29.7 (27.0-34.0) pg MCHC 33.3 (33.0-35.0) g/dL Plt Count 257 (150-450) 10^3/uL Neut % (Auto) 61.5 (42.2-75.2) % Lymph % (Auto) 30.6 (20.5-50.1) % [place] % (Auto) 7.0 (2-8) % Eos % (Auto) 0.6 L (1.0-3.0) % Baso % (Auto) 0.3 (0.0-1.0) % Sodium (136-145) mmol/L Potassium (3.5-5.1) mmol/L Chloride (98-107) mmol/L Carbon Dioxide (21-32) mmol/L Anion Gap (7-13) mEq/L BUN (7-18) mg/dL Creatinine (0.55-1.02) mg/dL Est Cr Clr Drug Dosing mL/min Estimated GFR (MDRD) BUN/Creatinine Ratio (No establ ref range) Glucose (74-99) mg/dL Lactic Acid (0.4-2.0) mmol/L Calcium (8.5-10.1) mg/dL Total Bilirubin (0.2-1.0) mg/dL AST (15-37) U/L ALT (14-59) U/L Alkaline Phosphatase (46-116) U/L Total Protein (6.4-8.2) g/dL Albumin (3.4-5.0) g/dL Globulin Albumin/Globulin Ratio Urine Color Yellow (YELLOW) Urine Appearance Slightly cloudy (CLEAR) Urine pH 6.5 (5.0-9.0) Ur Specific [place] 1.025 (1.005-1.030) Urine Protein Negative (NEGATIVE) Urine Glucose (UA) Negative (NEGATIVE) Urine Ketones Trace H (NEGATIVE) Urine Occult Blood Trace-intact H (NEGATIVE) Urine Nitrite Negative (NEGATIVE) Urine Bilirubin Negative (NEGATIVE) Urine Urobilinogen 0.2 (0.2-1.0) mg/dL Ur Leukocyte Esterase Negative (NEGATIVE) Urine RBC 0-5 /HPF Urine WBC 0-5 (0-5/HPF) /HPF Ur Epithelial Cells Few (NOT SEEN) /HPF Urine Bacteria Moderate H (0-FEW/HPF) /HPF Urine Mucus Many H (NOT SEEN) /LPF Urine Opiates Screen Negative (NEGATIVE) Ur Oxycodone Screen Negative (NEGATIVE) Urine Methadone Screen Negative (NEGATIVE) Ur Barbiturates Screen Negative (NEGATIVE) U Tricyclic Antidepress Negative (NEGATIVE) Ur Phencyclidine Scrn Negative (NEGATIVE) Ur Amphetamine Screen Negative (NEGATIVE) U Methamphetamines Scrn Negative (NEGATIVE) Urine MDMA Screen Negative (NEGATIVE) U Benzodiazepines Scrn Negative (NEGATIVE) Urine Cocaine Screen Negative (NEGATIVE) U Marijuana (THC) Screen Negative (NEGATIVE) 11/03/19 11/03/19 Range/Units 12:50 12:50 WBC (5.0-10.0) 10^3/uL RBC (4.2-5.4) 10^6/uL Hgb (12.0-16.0) g/dL Hct (37.0-47.0) % MCV (80-100) fL MCH (27.0-34.0) pg MCHC (33.0-35.0) g/dL Plt Count (150-450) 10^3/uL Neut % (Auto) (42.2-75.2) % Lymph % (Auto) (20.5-50.1) % [place] % (Auto) (2-8) % Eos % (Auto) (1.0-3.0) % Baso % (Auto) (0.0-1.0) % Sodium 138 (136-145) mmol/L Potassium 4.2 (3.5-5.1) mmol/L Chloride 101 (98-107) mmol/L Carbon Dioxide 28 (21-32) mmol/L Anion Gap 13.2 H (7-13) mEq/L BUN 9 (7-18) mg/dL Creatinine 0.99 (0.55-1.02) mg/dL Est Cr Clr Drug Dosing 69.30 mL/min Estimated GFR (MDRD) > 60 BUN/Creatinine Ratio 9.1 (No establ ref range) Glucose 102 H (74-99) mg/dL Lactic Acid 1.3 (0.4-2.0) mmol/L Calcium 9.0 (8.5-10.1) mg/dL Total Bilirubin 0.8 (0.2-1.0) mg/dL AST 14 L (15-37) U/L ALT 17 (14-59) U/L Alkaline Phosphatase 87 (46-116) U/L Total Protein 8.2 (6.4-8.2) g/dL Albumin 4.3 (3.4-5.0) g/dL Globulin 3.9 Albumin/Globulin Ratio 1.1 Urine Color (YELLOW) Urine Appearance (CLEAR) Urine pH (5.0-9.0) Ur Specific [place] (1.005-1.030) Urine Protein (NEGATIVE) Urine Glucose (UA) (NEGATIVE) Urine Ketones (NEGATIVE) Urine Occult Blood (NEGATIVE) Urine Nitrite (NEGATIVE) Urine Bilirubin (NEGATIVE) Urine Urobilinogen (0.2-1.0) mg/dL Ur Leukocyte Esterase (NEGATIVE) Urine RBC /HPF Urine WBC (0-5/HPF) /HPF Ur Epithelial Cells (NOT SEEN) /HPF Urine Bacteria (0-FEW/HPF) /HPF Urine Mucus (NOT SEEN) /LPF Urine Opiates Screen (NEGATIVE) Ur Oxycodone Screen (NEGATIVE) Urine Methadone Screen (NEGATIVE) Ur Barbiturates Screen (NEGATIVE) U Tricyclic Antidepress (NEGATIVE) Ur Phencyclidine Scrn (NEGATIVE) Ur Amphetamine Screen (NEGATIVE) U Methamphetamines Scrn (NEGATIVE) Urine MDMA Screen (NEGATIVE) U Benzodiazepines Scrn (NEGATIVE) Urine Cocaine Screen (NEGATIVE) U Marijuana (THC) Screen (NEGATIVE) Meds: Medications Discontinued Medications Generic Name Dose Route Start Last Admin Trade Name Freq PRN Reason Stop Dose Admin Ketorolac Tromethamine 30 mg 11/03/19 15:16 11/03/19 15:21 Toradol IVPUSH 11/03/19 15:17 30 mg ONETIME ONE Administration Departure - Departure Time of Disposition: 15:42 Disposition: Home, Self-Care 01 Condition: Fair Clinical Impression: Abdominal pain Qualifiers: Abdominal location: right lower quadrant Qualified Code(s): R10.31 - Right lower quadrant pain - Discharge Information *PRESCRIPTION DRUG MONITORING PROGRAM REVIEWED*: Not Applicable *COPY OF PRESCRIPTION DRUG MONITORING REPORT IN PATIENT MIKE: Not Applicable Instructions: Abdominal Pain, Adult, [id number] Forms: ED Department Discharge Care Plan Goals: The patient was advised of the examination, lab and CT results during the visit. The patient was given an injection of Toradol while in the ED. The patient was encouraged to take Tylenol and ibuprofen as directed for temporary symptom relief. The patient should increase her daily oral fluid intake. If the patient has any additional symptoms or concerns, the patient should either return to the emergency department or visit her primary care facility. Sepsis Event Note (ED) - Evaluation Sepsis Screening Result: No Definite Risk - Focused Exam Vital Signs: Vital Signs Temp Pulse Resp BP Pulse Ox 11/03/19 12:14 36.7 C 101 H 16 110/74 98 - My Orders Last 24 Hours: My Active Orders 11/03/19 12:50 CULTURE BLOOD [BC] Stat - Assessment/Plan Last 24 Hours: My Active Orders 11/03/19 12:50 CULTURE BLOOD [BC] Stat
[2019-11-03] MEDS ORDERED: Ketorolac 30 MG/ML SDV IVPUSH ONE (15:16)
--- NOTE | 2019-11-03 15:36 | CT ---
EXAMINATION: Abdomen Pelvis wo Cont SEX: Female AGE: 44 years CLINICAL HISTORY: 44-year-old female smoker with history "kidney stones" who has had cholecystectomy and hysterectomy now complaining of abdominal pain (with hematuria). CT exam 08 April 2019 reveals "bilateral punctate calcifications lower midpole calyces both kidneys; single 2.5 cm diameter simple cyst right adnexa (contralateral left oophorectomy); bilateral small midpole right and upper mid pole left renal cysts". Scan technique: Volume acquisition of data from the abdomen and pelvis obtained without oral or IV contrast i.e. renal stone study while patient was lying supine on the Siemens multi slice scanner [place], [place]. All data archived in the PACS system for storage, reformatting axial/sagittal/coronal planes and study. Interpretation: 1. Surgical clips gallbladder (cholecystectomy) and solitary clip right pelvis new since 08 April 2019 (no residual evidence previously reported "right ovarian cyst"). Bilateral pelvic phleboliths unchanged. 2. Normal size and configuration unenhanced kidneys. Small low-attenuation upper mid pole left and lower midpole right cortical cyst. Isolated punctate calcification lower pole calyx left kidney and several (at least 3) tiny punctate calcifications midline/lower pole contralateral right kidney i.e. bilateral nephrolithiasis. 3. No new evidence of ureterolithiasis or calcification in the urinary bladder. No pyelocaliectasis. 4. Normal caliber aortoiliac vessels. Lumbar spine unremarkable. Lung bases clear. 5. No pelvic or abdominal mass lesion, inflammatory "dirty" peritoneal fat, signs of mechanical bowel obstruction, mesenteric/retroperitoneal lymphadenopathy, ascites or free intraperitoneal air. 6. No foreign bodies. No ventral wall or inguinal hernias. CONCLUSION: Bilateral renal cysts and nephrolithiasis. No bladder stones or current signs of obstructive uropathy, upper tracts.
== END 2019-11-03 16:17 | disposition home or self-care (01) ==
LOC: DL.ED 12:01
DX: R10.31 Right lower quadrant pain (principal); E66.9 Obesity, unspecified; Z68.26 Body mass index [BMI] 26.0-26.9, adult; F17.210 Nicotine dependence, cigarettes, uncomplicated; Z88.0 Allergy status to penicillin
CPT/HCPCS: 36415; 74176; 80053; 80305; 81001; 83605; 85025; 87040; 96374; 99283; 99284; J1885